=== PATIENT | male | born 1985 | race Caucasian/White ===

== ENCOUNTER 2025-06-21 14:02 | Emergency (ER) | payer OTHER, SELFPAY ==
--- NOTE | 2025-06-21 14:21 | ED.GENADULT ---
HPI - General Adult General Chief complaint: Unspecified Stated complaint: neck/jaw/body pain Time Seen by Provider: 06/21/25 14:34 Source: patient, RN notes reviewed and old records reviewed Mode of arrival: ambulatory Limitations: no limitations History of Present Illness HPI narrative: 40-year-old male presents to the [facility] with a long history of anxiety. Patient has been taking BuSpa, recently stopped. Patient has concerns that it feels like something is sometimes crawling, has seconds long headaches, sometimes the pain is on the left side of his head into his neck. Patient reports has moments of fatigue that only lasts a very short period of time Reports that he does see a counselor weekly. Reports no issues with sleeping. Denies any injury. Does keep a journal Denies any suicidal or homicidal ideation Related Data Home Medications ?Medication ?Instructions ?Recorded ?Confirmed ?Last Taken ?Type buspirone 5 mg tablet mg 06/21/25 Unknown History trazodone 50 mg tablet mg 06/21/25 Unknown History Allergies Allergy/AdvReac Type Severity Reaction Status Date / Time No Known Allergies Allergy Verified 06/21/25 14:35 Review of Systems Review of Systems: All systems reviewed & are unremarkable except as noted in HPI and below Constitutional: Constitutional: Reports no additional constitutional complaints ENT: Reports system reviewed and no additional complaints, except as documented Cardiovascular: Cardiovascular: Reports no additional cardiovascular complaints, Denies chest pain and Denies dyspnea Respiratory: Respiratory: Reports no additional respiratory complaints, Denies chest congestion, Denies cough and Denies dyspnea Musculoskeletal: Musculoskeletal: Reports as per HPI Integumentary/Breasts: Skin/Breast: Reports system reviewed and no additional complaints, except as docu Psychiatric: Psychiatric: Reports as per HPI PMFSH Comments At the time of my signature, I reviewed and agree with the nursing past medical, surgical, social, and family history. There is no relevant family history pertinent to the patient complaint. Exam Const: General: cooperative, healthy appearing, comfortable, no acute distress, well developed, alert and well nourished Nutritional Appearance: well nourished Orientation/consciousness: patient oriented x3 Limitations: no limitations HENMT: Head: normal to inspection Ears: hearing grossly normal bilaterally, external ears normal, TM's normal bilaterally, EAC's normal, mastoids normal and no periauricular adenopathy Face/Nose/Sinus: Normal external nose present and Normal nares present Throat: posterior oropharynx normal, uvula midline and no uvular edema Eyes: General: appearance normal, both eyes and all related structures Alignment and Position: alignment normal Neck: Neck: normal visual inspection, full ROM, no lymphadenopathy and no meningeal signs Chest: Chest palpation & inspection: normal inspection of the chest Resp: Effort & Inspection: normal respiratory effort and able to speak in complete sentences Auscultation: clear to auscultation bilaterally, no crackles, no rales, no rhonchi and no wheezes Cardio: Rate: regular rate Skin: General skin exam: normal color and no rashes or lesions noted Neuro: General: patient oriented x3, gait normal, moves all extremities and no meningeal signs Cognition (Neuro): normal cognition Speech: normal speech Gait exam (Neuro): Normal gait present Extrem: General: normal to inspection, full ROM, capillary refill normal and normal gait Psych: Appearance: grossly normal and well kempt Mental Status: mental status grossly normal Speech and movement: Normal speech and movement present and Clear speech present Affect: normal affect, No Anxious affect present and No Ecstatic affect present Attitude: cooperative Thought process: Normal thought process present Thought content: Yes Normal thought content present Course Course Level of Care: Express Care Visit Vital Signs Vital signs: Vital Signs Temperature 98.6 F 06/21/25 14:27 Pulse Rate 81 06/21/25 14:27 Respiratory Rate 16 06/21/25 14:27 Blood Pressure 121/74 06/21/25 14:27 Pulse Oximetry 100 06/21/25 14:27 Temperature 98.6 F 06/21/25 14:27 Pulse Rate 81 06/21/25 14:27 Respiratory Rate 16 06/21/25 14:27 Blood Pressure 121/74 06/21/25 14:27 Pulse Oximetry 100 06/21/25 14:27 Reviewed Medical Decision Making MDM Narrative Medical decision making narrative: Patient sitting comfortably in exam room. Nontoxic, vitals stable. Patient in no acute distress Patient presents for very vague symptoms for over a month. No acute findings noted on exam Patient denies SI or HI, long history of anxiety. Discussed anxiety, depression can have physical presentation as well. Patient reports being on multiple medications which he does not like being on. Patient reports he had blood work in March, reports most were normal except low testosterone and liver enzymes were slightly elevated. Unable to see reports due to primary being out of network Discussed journaling, sleep, physical activity, possibly trying a multivitamin the most importantly following up with primary care provider, speak wound with a counselor Patient appropriate for outpatient treatment with close follow-up Discharge instructions reviewed with patient, as well as provided in writing per nursing staff. The instructions also include specific and strict return/GO TO THE ER as well as f/u information. All questions have been answered, and the patient deny any further questions with discharge and discharge plan. Some parts of this dictation were generated by voice recognition software and may contain typographical and/or grammatical inaccuracies. Differential Diagnosis Differential Diagnosis: Anxiety depression Medical Records Medical records reviewed: Yes I reviewed the external patient's medical records. Vital Signs Vital Signs: Vital Signs Temperature 98.6 F 06/21/25 14:27 Pulse Rate 81 06/21/25 14:27 Respiratory Rate 16 06/21/25 14:27 Blood Pressure 121/74 06/21/25 14:27 Pulse Oximetry 100 06/21/25 14:27 Temperature 98.6 F 06/21/25 14:27 Pulse Rate 81 06/21/25 14:27 Respiratory Rate 16 06/21/25 14:27 Blood Pressure 121/74 06/21/25 14:27 Pulse Oximetry 100 06/21/25 14:27 Reviewed Lab Data Lab results reviewed: Yes I reviewed the patient's lab results. Labs: Reviewed Critical Care Time Critical Care Time Critical Care Time: No Discharge Plan Discharge Clinical Impression: Anxiety Patient Disposition: Home Condition: Stable Instructions: Generalized Anxiety Disorder (ED), Anxiety (ED) Additional Instructions: Follow-up with primary care provider. For headaches you can take Tylenol. Magnesium glycinate, a multivitamin, healthy diet and hydration as well as 20 minutes of movement a day can possibly help If you develop severe symptoms please proceed to the emergency If you are having a hard time finding a physician please call our [facility] liaison at [phone]. Patient Language: Danish Prescriptions: No Action buspirone 5 mg tablet trazodone 50 mg tablet Follow-up/Referrals: Carlos,Juan Kelley MD [Primary Care Provider] - 1 Week Time of Disposition: 15:19
[2025-06-21 14:27] VITALS: BP 121/74; PULSE 81; RESP 16; TEMP 37; O2SAT 100
== END 2025-06-21 15:21 | disposition home or self-care (01) ==
PROVIDERS: Emergency Provider Nurse Practitioner; PCP Family Medicine
DX: F41.9 Anxiety disorder, unspecified (principal); Z79.899 Other long term (current) drug therapy
CPT/HCPCS: 99202; G0463